=== PATIENT | female | born 1970 | race African-American/Black ===

== ENCOUNTER 2018-12-28 23:18 | Emergency (ER) | payer OTHER ==
[~2018-12-28] VITALS: Ht 172.7 cm; Wt 167.8 kg
[~2018-12-28 23:18] MED LIST: CIPROFLOXACIN500 M1 PO; ENALAPRIL MALEA10 M1; ESTRACE0.5 MG PO; HYDRALAZINE 5050 M1; HYDROCHLOROTHIA25 M1; LOSARTAN-HCTZ1 EAC3 PO; NAPROSYN500 MG PO; PERCOCET 10-321 EACH PO; PERCOCET 5-3251 EACH PO
[2018-12-29 00:02] LABS: ABSOLUTE NEUTROPHILS 3.3 thou/uL (1.4-8.2); BASOPHILS 0.5 % (0.0-2.0); EOSINOPHILS 2.2 % (0.0-3.0); HEMATOCRIT 37.9 % (37.0-47.0); HEMOGLOBIN 12.5 gm/dL (12.0-15.0); MCH 29.3 pg (26.0-34.0); MCHC 33.1 g/dL (28.0-37.0); MCV 88.7 fL (80.0-100.0); PLATELET COUNT 187 thou/uL (150-400); POLYS 46.3 % (36.0-66.0); RBC 4.27 mil/uL (4.20-5.00); RDW 15.4 % (10.5-14.5)
[2018-12-29 00:13] LABS: ANION GAP 15 mmol/L (7-16); BUN 20 mg/dL (7-18); CALCIUM 9.1 mg/dL (8.5-10.1); CHLORIDE 103 mmol/L (98-107); CO2 23 mmol/L (21-32); GLUCOSE 175 mg/dL (74-106); SODIUM 141 mmol/L (136-145); TROPONIN-I <0.06 ng/mL (<0.06)
[2018-12-29 00:15] LABS: POTASSIUM 2.7 mmol/L (3.5-5.1)
[2018-12-29 02:46] LABS: AMP/METHAMP Negative (Negative); BARBITURATES Negative (Negative); BENZODIAZEPINES Negative (Negative); COCAINE Negative (Negative); METHADONE Negative (Negative); OPIATES Negative (Negative); PCP Negative (Negative)
[2018-12-29 04:30] VITALS: BP 182/111
--- NOTE | 2018-12-31 08:33 | EKG ---
[place] [address] [facility] [place] [address] ELECTROCARDIOGRAM REPORT Name: MIKEY VILLALPANDO Room #: DEP [facility] BAPTISTBetsy#: [id number] ������������������ Admission: 12/28/18 ������������������ Attend Phys: Discharge: 12/29/18 ������������������ Date of : 68 Report #: [id number] ����������������������������������������������������������������� [id number] THIS REPORT FOR: //name// [facility] ED Test Date: 2018-12-29 Test Time: 00:01:21 Pat Name: MIKEY VILLALPANOD Department: Room: Gender: F Electric Meter Technician: : 1970 Requested By: Augustus Montilla Order Number: [id number] MD: Petar Gonzalez Measurements Intervals [place] Rate: 66 P: 34 WV: 235 QRS: 17 QRSD: 111 T: 147 QT: 485 QTc: 509 Interpretive Statements Sinus rhythm Ventricular trigeminy Prolonged WV interval Probable left atrial enlargement Abnormal T, consider ischemia, lateral leads Electronically Signed On 12-31-2018 8:33:39 CDT by Petar Gonzalez [email or web address] ��������������������������������������������� <ELECTRONICALLY SIGNED> ���������������������������������������� By: Petar Gonzalez MD ��������������������������������������������� 12/31/18 0833 0001 MD MAGNO Vick
== END 2018-12-29 04:30 | disposition home or self-care (01) ==
LOC: ER 23:18
PROVIDERS: Emergency Medicine
DX: F10.99 Alcohol use, unspecified with unspecified alcohol-induced disorder (principal); Y90.3 Blood alcohol level of 60-79 mg/100 ml; F12.90 Cannabis use, unspecified, uncomplicated; R11.2 Nausea with vomiting, unspecified; I10 Essential (primary) hypertension; Z88.5 Allergy status to narcotic agent; Z90.710 Acquired absence of both cervix and uterus; Z79.899 Other long term (current) drug therapy

== ENCOUNTER 2019-06-02 09:19 | Emergency (ER) | payer OTHER ==
[~2019-06-02] VITALS: Ht 172.7 cm; Wt 155.1 kg
[2019-06-02] MEDS ORDERED: HYDROCHLOROTHIA25 M2 PO (09:23)
[2019-06-02] MEDS ORDERED: LOPRESSOR50 MG PO (09:23)
[2019-06-02] MEDS ORDERED: ESTRADIOL 1 MG T1 M1 PO (09:23)
[2019-06-02] MEDS ORDERED: CLONIDINE HCL0.2 M2 PO (09:23)
[2019-06-02 10:23] VITALS: BP 157/89
== END 2019-06-02 10:24 | disposition home or self-care (01) ==
LOC: ER 09:19
DX: M25.562 Pain in left knee (principal); I10 Essential (primary) hypertension; Z90.710 Acquired absence of both cervix and uterus; Z88.6 Allergy status to analgesic agent

== ENCOUNTER → 2019-06-25 | Day surgery (SDC) | payer OTHER ==
[~2019-06-25] VITALS: Ht 175.3 cm; Wt 156.9 kg
[~2019-06-25] MED LIST changes: +ASPIR 8181 M1 PO; +B COMPLEX1 EACH PO; +BLACK COHOSH200 MG PO; +CARVEDILOL25 MG PO; +CLONIDINE HCL0.2 M2 PO; +DICLOFENAC SODI75 MG PO; +DULOXETINE HCL60 MG PO; +ESTRADIOL 1 MG T1 M1 PO; +HYDROCHLOROTHIA25 M2 PO; +IRBESARTAN300 MG PO; +LOPRESSOR50 MG PO; +MULTI VITAMIN1 EACH PO; +VITAMIN D325 MC1 PO
== END | disposition home or self-care (01) ==
LOC: OR 10:01 → TBA 11:41 → OR 11:41
DX: M21.42 Flat foot [pes planus] (acquired), left foot (principal); M76.822 Posterior tibial tendinitis, left leg; Z53.8 Procedure and treatment not carried out for other reasons; I10 Essential (primary) hypertension; F32.9 Major depressive disorder, single episode, unspecified; E78.00 Pure hypercholesterolemia, unspecified; Z90.710 Acquired absence of both cervix and uterus